=== PATIENT | female | born 1955 | race Caucasian/White ===

== ENCOUNTER → 2018-12-09 | Outpatient (REF) ==
[2015-05-23 16:19] VITALS: Ht 165.1 cm; Wt 114.8 kg
[~2018-12-09] VITALS: Ht 165.1 cm; Wt 114.8 kg
[~2018-12-09] MED LIST: AMO500 PO; DAR100 PO; INSULIN; LANI SQ; LEVO750T25 PO; METR-1 PO; METXR500 PO; NO ROUTINE MEDS; PIO15 PO
--- NOTE | 2018-12-09 14:55 | Medical Nutrition Therapy ---
Nutrition Anthropometrics Height (Inches): 65 Weight (Pounds): 253 BMI: 42.1 Reynaldo Nutrition Score: Reynaldo Nutrition Risk Score: Dietary Referral Nutrition Risk Factors: Nutrition Risk Comment: Physical Findings Physical Appearance: Morbidly Obese 40+ Skin Appearance Skin Appearance: Edema Edema Location Modifier: Edema Location: Type of Edema: Degree of Edema: Gastrointestinal Symptoms GI Symtoms: Tube Present: Bowel Sounds: Recent Bowel Pattern: Stool Characteristics: Nutrition/Food History Breakfast: fruit + cottage cheese, yogurt or toast Lunch: 12/11 corn tortilla, 1c beans, meat, green chili,sour cream Dinner: fish, 1c roasted veg Snacks: ususally doesn't snack Nutritional Education Nutrition Education Topic: Diabetic Nutrition (and insulin management) Learning Readiness: Interested Teaching Methods: Discussion, Handout, Demonstration Response to Teaching: Verbalize understanding Teaching Recipient: Patient Nutrition Counseling: Pt states has been on lantus and will now be starting rapid insulin with meals. A1c 11. Discussed significance of elevated A1c. Reviewed action on long acting and rapid acting insulins. Discussed s/s of hyper and hypoglycemia and provided handout. Reviewed 15:15 rule for hypoglycemia. Discussed with elevated BG she has been having, pt may feel hypoglycemic even if BG isn't. Recommend treat with 15gm CHO to feel better. Pt has vision issues. Provided large print and pictures for meal plan. Est current meals ~ 30-45gm CHO. Recommend pt cont this range which should be a wt loss range for pt. Pt brought in cookbook she has been using . Most menus were 20-35gm CHO. Reviewed food portions and plate method. Recommend pt cont 30gm CHO or 2 servings or 1c. Pt currently measures foods so 1c method may be best for pt to follow. Discused glycemic index and difference between rapid digesting CHO verses slower digesting CHO. Encouraged slow digesting and reviewed these foods. Recommend pt keep small amounts of rapid digesting (juice, sugar, jelly) for hypoglycemic rx. Provided contact info and reminded pt she can call for any further questions or concerns. Nutrition Monitoring & Eval RD Patient Assessment Time: [address] Assessment Type: RD Education Nutritional Comment: provided 90 minutes diabetes education focusing on insulin management and nutrition. Copies To Copies to: [facility]; LOC MYRICK ; MICHELLE HORN Dec 09, 2018 14:55
== END ==
LOC: DIET 09:32
PROVIDERS: ATTEND Nurse Practitioner
DX: E11.319 Type 2 diabetes mellitus with unspecified diabetic retinopathy without macular edema (principal); N18.9 Chronic kidney disease, unspecified
CPT/HCPCS: G0108 ×2

== ENCOUNTER → 2019-03-07 | Outpatient (CLI) | payer BC ==
[2015-05-23 16:19] VITALS: BMI 46.2
[~2019-03-07] MED LIST changes: +AMIT-106 PO; +AMLO-125 PO; +ASPI81TA94 PO; +ATOR40TA24 PO; +BETA1TAB44 PO; +CHOL100058 PO; +INSU100I30 SQ; +LANI SUBQ; +LOSA50TA80 PO; +NEED-498 MC
[2019-03-07 15:01] LABS: PLATELET COUNT, AUTOMATED 253 K/uL (150-450)
== END ==
LOC: LAB 14:43
PROVIDERS: ATTEND Emergency Medicine
DX: E78.5 Hyperlipidemia, unspecified (principal); E11.40 Type 2 diabetes mellitus with diabetic neuropathy, unspecified; N18.3 Chronic kidney disease, stage 3 (moderate); I12.0 Hypertensive chronic kidney disease with stage 5 chronic kidney disease or end stage renal disease; E11.22 Type 2 diabetes mellitus with diabetic chronic kidney disease
CPT/HCPCS: 36415; 82040; 82247; 82306; 82310; 82374; 82435; 82465; 82565; 82607; 82947; 83036; 83718; 84075; 84132; 84155; 84295; 84443; 84450; 84460; 84478; 84520; 85025

== ENCOUNTER → 2019-04-15 | Outpatient (CLI) | payer BC ==
[2015-05-23 16:19] VITALS: BMI 46.2
[~2019-04-15] MED LIST changes: +CYAN500T38 PO; +DULA0.75 SUBQ
== END ==
LOC: LAB 14:25
PROVIDERS: ATTEND Emergency Medicine
DX: E11.9 Type 2 diabetes mellitus without complications (principal)
CPT/HCPCS: 36415; 83036

== ENCOUNTER → 2019-04-18 | Outpatient (CLI) | payer BC ==
[2015-05-23 16:19] VITALS: BMI 46.2
== END ==
LOC: LAB 09:51
PROVIDERS: ATTEND Emergency Medicine
DX: E11.9 Type 2 diabetes mellitus without complications (principal)
CPT/HCPCS: 36415

== ENCOUNTER → 2019-04-21 | Outpatient (CLI) | payer BC ==
[2015-05-23 16:19] VITALS: BMI 46.2
--- NOTE | 2019-04-26 12:26 | RADIOLOGY IMAGING REPORT ---
FACILITY: [facility] PATIENT NAME: SANTANA HUBER : [id number] MR: [id number]: [id number] EXAM DATE: ORDERING PHYSICIAN: BANDAR ALFREDO TECHNOLOGIST: Britt Foster PROCEDURE: BILATERAL DIGITAL SCREENING MAMMOGRAM WITH CAD ASSISTED INTERPRETATION & 3D TOMOSYNTHESIS REASON FOR STUDY: Screening. FAMILY HISTORY OF BREAST CANCER: None. BREAST PROCEDURES/TREATMENTS: None. COMPARISON: Prior mammograms 09/18/09. VIEWS OBTAINED: 2D & 3D full field CC & MLO. BREAST DENSITY: The breasts are almost entirely fatty. MAMMOGRAM FINDINGS: The parenchymal pattern has remained stable allowing for difference in mammographic technique & patient positioning. IMPRESSION: BIRADS 1: Negative. DIAGNOSTIC CATEGORY 1--NEGATIVE. RECOMMENDATIONS: ROUTINE MAMMOGRAM AND CLINICAL EVALUATION. Dictated by: Magaly Jimenez M.D. on 04/21/2019 at 15:33 Transcribed by: JONAS on 04/22/2019 at 9:00 Approved by: Magaly Jimenez M.D. on 04/26/2019 at 12:25 [facility]
== END ==
LOC: MAMO 01:04
PROVIDERS: ATTEND Emergency Medicine
DX: Z12.31 Encounter for screening mammogram for malignant neoplasm of breast (principal)
CPT/HCPCS: 77063; 77067

== ENCOUNTER → 2019-07-05 | Outpatient (CLI) | payer BC ==
[2015-05-23 16:19] VITALS: BMI 46.2
[~2019-07-05] MED LIST changes: -CYAN500T38 PO; +CYAN500T39 PO; +DULA1.5P SC; +FLAS1EAC SUBQ; +FLAS1KIT SUBQ; +GABA-547 PO
== END ==
LOC: LAB 10:47
PROVIDERS: ATTEND Emergency Medicine
DX: E11.9 Type 2 diabetes mellitus without complications (principal)
CPT/HCPCS: 36415; 83036